=== PATIENT | male | born 2000 | race Caucasian/White ===

== ENCOUNTER 2024-02-24 12:36 | Emergency (ER) | payer BC, SELFPAY ==
[2024-02-24 12:44] VITALS: BP 118/80
[2024-02-24 13:28] LABS: COVID-19 Antigen Negative (Negative)
--- NOTE | 2024-02-24 14:16 | ED.GENMED ---
History of Present Illness
General
Chief Complaint: Cold/Flu/URI Symptoms
Source: patient
Time Seen by Provider: 02/24/24 14:03
History of Present Illness
History of Present Illness:
23yoM with no significant past medical history presenting with his father for evaluation of flu-like symptoms x 6 days. Symptoms include fevers, body aches, vomiting, diarrhea, nasal congestion, sore throat, and swollen glands. He is having about
3 episodes of diarrhea daily and 4-5 episodes of vomiting. He was seen by his PCP 4 days ago for the same and was told it was likely viral. He was given a prescription for Zofran yesterday which has helped with the vomiting. Patient is here with
persistent symptoms. He has been taking Tylenol and Mucinex at home. He was sent for outpatient blood work a few days ago which showed an elevated CRP. No rashes, abdominal pain, dysuria, neck stiffness. No known sick contacts, recent travel, or
history of IV drug use.
Phy Exam
General Physical Exam
General Presentation: well appearing and no apparent distress
General age: appears stated age
General Skin: warm and dry
General Habitus: normal
General Mental: alert
ENT Exam
ENT Exam: TM's normal, pharynx normal, neck supple, normocephalic and other (+Anterior cervical lymphadenopathy)
Additional ENT: No meningismus
Cardiovascular Exam
Cardiovascular Exam: no murmur and tachycardia
Pulmonary Exam
Pulmonary Exam: lungs clear, no respiratory distress, no rales, no crackles, no rhonchi, no wheezing and no cough
Gastrointestinal Exam
Gastrointestinal Exam: non tender, soft and non distended
Neurological Exam
Neurological Exam: alert
[place] Coma Scale
Eye Opening: Spontaneous
Verbal Response: Oriented
Motor Response: Obeys Commands
GCS Total Score: 15
Skin Exam
Skin Exam: normal color and warm/dry
Psychiatric Exam
Psychiatric Exam: normal mood/affect
Sepsis
Sepsis Screening
Sepsis Assessment: Sepsis Ruled Out
Sepsis Screen
Sepsis Screen: Sepsis Ruled Out
Date: 02/24/24
Time: 18:55
Course
Orders/Labs/Results
Orders:
Orders
02/24/24 12:51
CR Chest - 2 Views Urgent
Comment:
Reason For Exam: fever; h/o apsiration pneumonia
02/24/24 12:59
COVID-19 Antigen Urgent
Source: Nasal Swab
Influenza A+B Rapid Molecular Urgent
JAKI Source: Nasal Swab
Specimen Description:
02/24/24 14:13
Add On - Microbiology Urgent
Tests Added?: respiratory viral panel
0.9% Sodium Chloride 1000 ml [Nss] 1,000 ml IV BOLUS
Acetaminophen [Tylenol] 1,000 mg PO NOW STA
Ketorolac [Toradol] 15 mg IV NOW STA
02/24/24 14:38
Complete Blood Count/With Diff Urgent
Comprehensive Metabolic Panel Urgent
Monotest Urgent
02/24/24 15:20
Rapid Strep Group A Urgent
JAKI Source: Throat/Pharynx
Specimen Description:
Date Specimen was Collected: 02/24/24
Time Specimen was Collected: 14:36
Abnormal Lab Results
02/24/24
14:38
RBC 4.43 L 10^6/uL
(4.70-6.10)
Hct 37.7 L %
(39.0-52.0)
Absolute Lymphs (auto) 0.9 L 10^3/uL
(1.2-3.4)
Absolute Monos (auto) 0.9 H 10^3/uL
(0.1-0.6)
Lymphocytes % 14.3 L %
(20.5-51.1)
Monocytes % 14.3 H %
(1.7-9.3)
Sodium 133 L mmol/L
(135-145)
Glucose 124 H mg/dl
(70-99)
02/24/24 14:38
02/24/24 14:38
Vital Signs
Initial and Last Documented VS:
Initial Vital Signs
Temp Pulse Resp BP Pulse Ox
103.1 F H 121 16 118/80 99
02/24/24 12:44 02/24/24 12:44 02/24/24 12:44 02/24/24 12:44 02/24/24 12:44
Last Documented Vital Signs
Temp Pulse Resp BP Pulse Ox
99.5 F 94 16 116/67 99
02/24/24 15:25 02/24/24 15:25 02/24/24 15:25 02/24/24 15:25 02/24/24 12:44
MDM/Problems Addressed
Differential Diagnosis Includes:
23yoM here with flu-like symptoms x 6 days including vomiting, diarrhea, congestion, fevers. Has been seen by PCP and was told it was viral. Temp 103.1 on arrival with associated tachycardia to 121. Remainder of vitals normal. Patient
well-appearing in no distress. Anterior cervical lymphadenopathy present on exam. Remainder of exam reassuring. No evidence of meningismus. Differential diagnosis includes but is not limited to: Viral illness, COVID, influenza, pneumonia
Initial ED plan: COVID/flu swab and CXR obtained in triage. COVID/flu testing negative and no infiltrates seen on CXR. Will check CBC, CMP, Monospot, strep swab, and stool testing. Tylenol, IV Toradol, and fluid bolus for symptoms.
*Critical Care Note
Total Time (30-74mins, 75-104mins- exclusive of procedures): Not Applicable
Update Note
Update Note:
Lab work unremarkable including normal white count and LFTs. Monotest and strep swab negative. Patient unable to provide stool sample during ED stay. Patient has defervesced after medications and is feeling much better. Patient well-appearing on
reassessment. No indication for hospitalization at this time. Suspect viral illness. Recommend continued supportive care. Advised close follow-up with PCP and ED return precautions discussed. Patient and father in agreement with plan. He was
discharged in stable condition.
ED Attending Note
-
Portions of this chart may have been created with voice recognition software.� Occasional wrong word or��sound alike� substitutions may have occurred due to the inherent limitations of voice recognition software.
Discharge Plan
Departure
Patient Disposition: Home (Routine Discharge)
Date of Disposition: 02/24/24
Time of Disposition: 16:33
Patient with high blood pressure during this ER visit?: No
Discharge Problem:
Viral illness
Instructions: Viral Syndrome (DC)
Prescriptions:
No Action
ibuprofen 600 MG tablet
600 mg PO Q6HPRN PRN (Reason: pain) Qty: 15 0RF
Referrals:
Sharona Medrano MD [Family Provider] -
Activity Restrictions/Additional Instructions:
Drink plenty of fluids and rest. Take Tylenol 650mg and ibuprofen 600mg every 6 hours as needed for fevers/body aches.
Please follow-up with your family doctor on Tuesday. Return to the ER with any new or worsening symptoms.
Interventions
Interventions:
*Risk Screen - Suicide Last Done: 02/24/24 12:44
*Neglect/Abuse Screening Last Done: 02/24/24 12:44
*Nursing Disposition Last Done: 02/24/24 16:52
Discharge Date and Time
Discharge Date/Time: 02/24/24 16:52
Print Language: WELSH
[2024-02-24] MEDS: NSS 1000 IV (14:32)
[2024-02-24] MEDS: TORADOL 15 MG IV (14:33)
[2024-02-24] MEDS: TYLENOL 1000 MG PO (14:33)
[2024-02-24 14:51] LABS: % Basophils 0.2 % (0-2); % Eosinophils 0.2 % (0-6); % Immature Granulocytes 0.5 % (0-0.5); % Lymphocytes 14.3 % (20.5-51.1); % Monocytes 14.3 % (1.7-9.3); % Neutrophils 70.5 % (42.2-75.2); Absolute Lymphocytes 0.9 10^3/uL (1.2-3.4); Absolute Monocytes 0.9 10^3/uL (0.1-0.6); Absolute Neutrophils 4.5 10^3/uL (1.4-6.5); Hematocrit 37.7 % (39.0-52.0); Hemoglobin 13.1 g/dL (13.0-18.0); Mean Corp Hgb Conc. 34.7 g/dL (33.0-37.0); Mean Corpuscular Hgb 29.6 pg (27.0-31.0); Mean Corpuscular Volume 85.1 fL (80.0-94.0); Mean Platelet Volume 9.9 fL (7.4-10.4); Nucleated Red Blood Cells % 0 % (-); Platelet Count 175 10^3/uL (130-400); Red Blood Cell Count 4.43 10^6/uL (4.70-6.10); Red Cell Dist. Width 12.9 % (11.5-14.5); White Blood Cell Count 6.3 10^3/uL (4.8-10.8)
[2024-02-24 15:13] LABS: ALT (SGPT) 40 U/L (0-50); AST (SGOT) 36 U/L (17-59); Albumin 3.7 g/dl (3.5-5.0); Alkaline Phosphatase 65 U/L (38-126); Blood Urea Nitrogen 13 mg/dl (9-20); Calcium 8.5 mg/dl (8.4-10.2); Carbon Dioxide 27 mmol/L (22-30); Chloride 98 mmol/L (98-107); Glucose 124 mg/dl (70-99); Sodium 133 mmol/L (135-145); Total Bilirubin 0.4 mg/dl (0.2-1.3); Total Protein 6.6 g/dl (6.3-8.2); eGFR > 60.00
[2024-02-24 15:25] VITALS: BP 116/67
[2024-02-24 16:12] LABS: Monotest Negative (Negative)
== END 2024-02-24 16:52 | disposition home or self-care (01) ==
LOC: EMR 12:36
PROVIDERS: Physician Assistant; Student in an Organized Health Care Education/Training Program; EMERGENCY PHYSICIAN Emergency Medicine; FAMILY PHYSICIAN Pediatrics
DX: B34.9 Viral infection, unspecified (principal); Z11.52 Encounter for screening for COVID-19
CPT/HCPCS: 99284; 96374; 96361; 71046; 80053; 85025; 86308; 87070; 87502; 87811; 87880